=== PATIENT | female | born 1990 | race Caucasian/White ===

== ENCOUNTER 2022-10-23 16:10 | Emergency (ER) | payer OTHER ==
[~2022-10-23] VITALS: Ht 162.6 cm; Wt 88.5 kg
[2022-10-23] MEDS ORDERED: SULF1TAB48 PO (17:18)
[2022-10-23] MEDS ORDERED: AMOX-430 PO (17:18)
[2022-10-23 17:23] VITALS: BP 133/72; TEMP 98.7; O2SAT 98
--- NOTE | 2022-10-23 17:23 | NUR ---
Patient discharged to home in stable condition. Written and verbal after care instructions given. Patient verbalizes understanding of instructions. Stressed follow up or return to ER for worsening s/s.
== END 2022-10-23 17:24 | disposition home or self-care (01) ==
LOC: ER 16:10
DX: N75.0 Cyst of Bartholin's gland (principal); Z79.899 Other long term (current) drug therapy
CPT/HCPCS: A4663